=== PATIENT | female | born 1980 | race Caucasian/White ===

== ENCOUNTER 2020-06-18 11:32 | Emergency (ER) | payer SELFPAY ==
[2020-06-18 11:43] VITALS: BP 123/77
--- NOTE | 2020-06-18 11:45 | ER Document Report ---
ED Medical Screen (RME) - General Chief Complaint: Laceration Stated Complaint: LACERATION Time Seen by Provider: 06/18/20 11:41 Primary Care Provider: AVINASH FROST [Primary Care Provider] - Follow up as needed Mode of Arrival: Ambulatory Information source: Patient Notes: 40-year-old female presented ED for laceration to her chin. She states she [place]. She states she did not come because she did not have a ride. She did use tape to shut the wound. It has been well over 24 hours at this time. I have informed her that it is hard to suture the wound that is over 12 hours old. She would like to go back and be seen by somebody to see if they could close it better than it is. She is alert oriented respirations regular nonlabored speaking in full sentences. There is no obvious drainage or redness to the site. I have greeted and performed a rapid initial assessment of this patient. A comprehensive ED assessment and evaluation of the patient, analysis of test results and completion of medical decision making process will be conducted by an additional ED providers. Doctor's Discharge - Discharge Referrals: AVINASH FROST [Primary Care Provider] - Follow up as needed
--- NOTE | 2020-06-18 12:03 | ER Document Report ---
ED General - General Chief Complaint: Laceration Stated Complaint: LACERATION Time Seen by Provider: 06/18/20 11:41 Primary Care Provider: AVINASH FROST [Primary Care Provider] - Follow up as needed Mode of Arrival: Ambulatory Notes: Patient presents with chin laceration sustained over 24 hours ago when she fell. It was cleansed and then she let it go because she had some meetings to go to and could not come to the ED. Tetanus is up-to-date. Now she wants to know if it can be sutured. Butterfly bandages were placed at her dentist office today. Her teeth do not hurt there is no intraoral laceration no headache no LOC no vomiting. - Related Data Allergies/Adverse Reactions: ketorolac [From Toradol] Allergy (Verified 06/18/20 12:02) latex Allergy (Verified 06/18/20 12:02) levofloxacin [From Levaquin] Allergy (Verified 06/18/20 12:02) prochlorperazine [From Compazine] Allergy (Verified 06/18/20 12:02) Past Medical History - General Information source: Patient - Social History Smoking Status: Unknown if Ever Smoked Family History: None Review of Systems - Review of Systems Notes: REVIEW OF SYSTEMS GEN: Denies fever, chills, weight loss ENT: Chin laceration EYES: Denies blurry vision, eye pain, discharge CV: Denies chest pain, palpitations, edema RESP: Denies cough, shortness of breath, wheezing GI: Denies abdominal pain, nausea, vomiting, diarrhea MSK: Denies joint pain/swelling, edema, SKIN: Denies rash, skin lesions LYMPH: Denies swollen glands/lymph nodes NEURO: Denies headache, focal weakness or numbness, dizziness PSYCH: Denies depression, suicidal or homicidal ideation PHYSICAL EXAMINATION General: No acute distress, well-nourished Head: Atraumatic, normocephalic ENT: Mouth normal, oropharynx moist, no exudates or tonsillar enlargement centimeter transverse minimally gaping chin laceration which is dried up undersurface of the submental area Eyes: Conjunctiva normal, pupils equal, lids normal Neck: No JVD, supple, no guarding CVS: Normal rate, regular rhythm, no murmurs Resp: No resp distress, equal and normal breath sounds bilaterally GI: Nondistended, soft, no tenderness to palpation, no rebound or guarding Ext: No deformities, no edema, normal range of motion in upper and lower ext Back: No CVA or midline TTP Skin: No rash, warm Lymphatic: No lymphadeopathy noted Neuro: Awake, alert. Face symmetric. GCS 15. Physical Exam - Vital signs Vitals: Temp Pulse Resp BP Pulse Ox 97.9 F 81 20 123/77 100 06/18/20 11:43 06/18/20 11:43 06/18/20 11:43 06/18/20 11:43 06/18/20 11:43 Course - Re-evaluation Re-evalutation: 06/18/20 12:03 Minor laceration not gaping cosmetically would not benefit from a high risk closure at this time, recommend antibiotic ointmentdoes not need tetanus Asked for gabapentin refillgranted Follow-up primary care I have discussed with the patient there likely diagnosis, aftercare plan, follow-up plans and my usual and customary return precautions. They verbalized understanding of this. Please note that clinical decision making for this patient was made during the 2019 pandemic of novel coronavirus which caused a significant strain on the healthcare system including at this particular facility. Criteria for admission, discharge and level of care decisions as well as treatment decisions have necessarily changed. - Vital Signs Vital signs: Temp Pulse Resp BP Pulse Ox 97.9 F 81 20 123/77 100 06/18/20 11:43 06/18/20 11:43 06/18/20 11:43 06/18/20 11:43 06/18/20 11:43 - Laboratory Results Critical Laboratory Results Reviewed: No Critical Results - Radiology Results Critical Radiology Results Reviewed: No Critical Results Discharge - Discharge Clinical Impression: Chin laceration Qualifiers: Encounter type: initial encounter Qualified Code(s): S01.81XA - Laceration without foreign body of other part of head, initial encounter Condition: Good Disposition: HOME, SELF-CARE Instructions: Antibiotic Ointment Protection ([facility]), Laceration Care ([facility]) Prescriptions: Gabapentin 300 mg PO BID #90 ml Referrals: [facility] [Provider Group] - Follow up as needed
== END 2020-06-18 12:44 | disposition home or self-care (01) ==
LOC: ER 11:32
DX: S01.81XA Laceration without foreign body of other part of head, initial encounter (principal); W19.XXXA Unspecified fall, initial encounter; Z88.1 Allergy status to other antibiotic agents; Z88.8 Allergy status to other drugs, medicaments and biological substances
CPT/HCPCS: 99283

== ENCOUNTER 2020-07-15 14:51 | Emergency (ER) | payer SELFPAY ==
[2020-07-15] MEDS ORDERED: ONDANSETRON HCL INJ/PF 4 MG/2 ML SDV IV ONE (16:31)
[2020-07-15] MEDS ORDERED: NORMAL SALINE 1000 ML 1,000 ML IV ONE ×2 (16:31→17:34)
--- NOTE | 2020-07-15 16:32 | ER Document Report ---
ED GI/ - General Chief Complaint: Vomiting Stated Complaint: VOMITING Time Seen by Provider: 07/15/20 16:12 Notes: Patient is a 40-year-old female who comes emergency department for chief complaint of vomiting. She states she has vomited about 5 times a day for the past 4 days. She states she initially had a headache and thought that she v omited from that, however this resolved and she continued to vomit. She denies specific abdominal or flank pain, denies chest pain, fever, diarrhea, hematemesis, hematochezia. She denies drug withdrawal, she states that she is on Suboxone and has not had opiates for a year. She states she wonders if it is because she ran out of her trazodone and Cymbalta 2 weeks ago but she felt fine until a few days ago. She states she is not on any other medications, she denies recent alcohol, smoking, or any recreational drugs. - Related Data Allergies/Adverse Reactions: ketorolac [From Toradol] Allergy (Verified 07/15/20 17:10) latex Allergy (Verified 07/15/20 17:10) levofloxacin [From Levaquin] Allergy (Verified 07/15/20 17:10) prochlorperazine [From Compazine] Allergy (Verified 07/15/20 17:10) Past Medical History - General Information source: Patient - Social History Smoking Status: Never Smoker Frequency of alcohol use: None Drug Abuse: None Lives with: Family Family History: None Surgical Hx: Negative - Immunizations Immunizations up to date: Yes Hx Diphtheria, Pertussis, Tetanus Vaccination: Yes Review of Systems - Review of Systems Constitutional: See HPI EENT: No symptoms reported Cardiovascular: No symptoms reported Respiratory: No symptoms reported Gastrointestinal: See HPI Genitourinary: No symptoms reported Female Genitourinary: No symptoms reported Musculoskeletal: No symptoms reported Skin: No symptoms reported Hematologic/Lymphatic: No symptoms reported Neurological/Psychological: No symptoms reported Physical Exam - Vital signs Vitals: Temp Pulse Resp BP Pulse Ox 97.6 F 66 20 121/84 100 07/15/20 15:18 07/15/20 15:18 07/15/20 15:18 07/15/20 15:18 07/15/20 15:18 - Notes Notes: GENERAL: Patient appears tired and worn, appears uncomfortable, however she is still alert and conversational HEAD: Normocephalic, atraumatic. EYES: Pupils equal, round, and reactive to light. Extraocular movements intact. ENT: Oral mucosa very dry, tongue midline. Oropharynx unremarkable. Airway patent. NECK: Full range of motion. Supple. Trachea midline. No lymphadenopathy. LUNGS: Clear to auscultation bilaterally, no wheezes, rales, or rhonchi. No respiratory distress. Non-tender chest wall. HEART: Regular rate and rhythm. No murmur ABDOMEN: Minimal generalized tenderness over the abdomen, no distention, bowel sounds present throughout. GENITOURINARY: Deferred EXTREMITIES: Moves all 4 extremities spontaneously. No edema, normal radial and dorsalis pedis pulses bilaterally. No cyanosis. BACK: no cervical, thoracic, lumbar midline tenderness. No saddle anesthesia, normal distal neurovascular exam. Moves all extremities in full range of motion. NEUROLOGICAL: Alert and oriented x3. Normal speech. Cranial nerves II through XII grossly intact. Strength 5/5 in all extremities. PSYCH: Normal affect, normal mood. SKIN: Slightly pale Course - Re-evaluation Re-evalutation: Initially patient appeared very tired and worn out, dry mucous membranes, however her abdomen is soft and benign, vital signs unremarkable. CBC, chemistry, lipase unremarkable. Patient has had a hysterectomy. Urinalysis has not yet been obtained, however patient has received IV fluids, p.o. meds, and Zofran. patient requesting to leave. 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 She has no other sick symptoms and no complaints on reevaluation. Urinalysis had not yet been obtained but is pending. Patient states that she still has to leave and is requesting discharge. Low suspicion of acute abdomen, no other symptoms suggesting significant illness, no headache, patient will be discharged with return pr ecautions. Patient states appreciation and agreement. Stable and well- appearing at time of discharge. - Vital Signs Vital signs: Temp Pulse Resp BP Pulse Ox 97.6 F 70 18 136/81 H 100 07/15/20 15:18 07/15/20 18:40 07/15/20 18:40 07/15/20 18:40 07/15/20 18:40 - Laboratory Results Result Diagrams: 07/15/20 16:35 07/15/20 16:35 Laboratory Results Interpreted: 07/15/20 07/15/20 16:35 18:10 Glucose 133 H Total Protein 8.4 H Urine Ketones 20 H Critical Laboratory Results Reviewed: No Critical Results - Radiology Results Critical Radiology Results Reviewed: No Critical Results Discharge - Discharge Clinical Impression: Dehydration Vomiting Qualifiers: Vomiting type: unspecified Vomiting Intractability: non-intractable Nausea presence: with nausea Qualified Code(s): R11.2 - Nausea with vomiting, unspecified Condition: Stable Disposition: HOME, SELF-CARE Additional Instructions: Your laboratory work-up up to this point does not show any concerning findings, your exam is reassuring. Is not certain at this time what is causing your vomiting. Most likely this will simply resolve with time, recommend the Phenergan for nausea, Pepcid, bland diet, plenty of fluids, and rest. Follow-up with primary care. Return for any concerning symptoms including abdominal pain, returned uncontrolled vomiting, fever, or any other concerning or worsening symptoms. Prescriptions: Famotidine [Pepcid 20 mg Tablet] 20 mg PO BID #20 tablet Promethazine HCl [Phenergan 25 mg Tablet] 25 mg PO Q6H PRN #20 tablet PRN Reason:
[2020-07-15 16:55] LABS: ABSOLUTE LYMPHOCYTES (AUTO) 1.8 10^3/uL (0.5-4.7); ABSOLUTE MONOCYTES (AUTO) 0.5 10^3/uL (0.1-1.4); ABSOLUTE NEUT (AUTO) 5.9 10^3/uL (1.7-8.2); BASOPHILS % (AUTO) 0.3 % (0-2); EOSINOPHILS % (AUTO) 0.2 % (0-6); HEMATOCRIT 39.7 % (36.0-47.0); HEMOGLOBIN 13.9 g/dL (12.0-15.5); LYMPHOCYTES % (AUTO) 21.9 % (13-45); MEAN CORPUSCULAR HEMOGLOBIN 30.4 pg (27.0-33.4); MEAN CORPUSCULAR HGB CONC 35.1 g/dL (32.0-36.0); MEAN CORPUSCULAR VOLUME 87 fl (80-97); PLATELET COUNT 254 10^3/uL (150-450); RED BLOOD COUNT 4.58 10^6/uL (3.72-5.28); RED CELL DISTRIBUTION WIDTH 13.5 % (11.5-14.0); SEGMENTED NEUTROPHILS % (AUTO) 71.6 % (42-78); TOTAL CELLS COUNTED % (AUTO) 100 %; WHITE BLOOD COUNT 8.2 10^3/uL (4.0-10.5)
[2020-07-15 17:18] LABS: ALBUMIN 4.8 g/dL (3.5-5.0); ALKALINE PHOSPHATASE 114 U/L (38-126); ANION GAP 10 (5-19); ASPARTATE AMINO TRANSFERASE 33 U/L (14-36); BILIRUBIN,DIRECT 0.2 mg/dL (0.0-0.4); BILIRUBIN,TOTAL 0.7 mg/dL (0.2-1.3); BLOOD UREA NITROGEN 20 mg/dL (7-20); CALCIUM 10.2 mg/dL (8.4-10.2); CARBON DIOXIDE 28 mmol/L (22-30); CHLORIDE 101 mmol/L (98-107); GLUCOSE 133 mg/dL (75-110); POTASSIUM 4.1 mmol/L (3.6-5.0); TOTAL PROTEIN 8.4 g/dL (6.3-8.2)
[2020-07-15 17:20] LABS: ALCOHOL < 10 mg/dL (NONE DETECTED)
[2020-07-15] MEDS ORDERED: FAMOTIDINE 20 MG TABLET PO ONE (17:34)
[2020-07-15] MEDS ORDERED: PROMETHAZINE HCL 25 MG TABLET PO ONE (17:34)
[2020-07-15 18:41] VITALS: BP 136/81
[2020-07-15 18:46] LABS: APPEARANCE,URINE SLIGHTLY-CLOUDY; BILIRUBIN,URINE NEGATIVE (NEGATIVE); COLOR,URINE YELLOW; GLUCOSE, URINE NEGATIVE (NEGATIVE); KETONES,URINE 20 mg/dL (NEGATIVE); LEUKOCYTE ESTERASE,URINE NEGATIVE (NEGATIVE); NITRITE,URINE NEGATIVE (NEGATIVE); PROTEIN,URINE NEGATIVE (NEGATIVE); URINE SPECIFIC GRAVITY 1.018; UROBILINOGEN,URINE NEGATIVE mg/dL (<2.0)
[2020-07-15 18:50] LABS: URINE AMPHETAMINES SCREEN NEGATIVE; URINE BARBITURATES SCREEN NEGATIVE; URINE BENZODIAZEPINES SCREEN NEGATIVE; URINE COCAINE SCREEN NEGATIVE; URINE MARIJUANA (THC) SCREEN NEGATIVE; URINE METHADONE SCREEN NEGATIVE; URINE PHENCYCLIDINE SCREEN NEGATIVE
== END 2020-07-15 18:41 | disposition home or self-care (01) ==
LOC: ER 14:51
DX: E86.0 Dehydration (principal); R11.2 Nausea with vomiting, unspecified; R51.9 Headache, unspecified; Z91.040 Latex allergy status; Z90.710 Acquired absence of both cervix and uterus
CPT/HCPCS: 99284; 96361; 96374; 36415; 80307 ×2; 83690; 85025; 80053; 81001; J2405; J7030